=== PATIENT | female | born 1950 | race Caucasian/White ===

== ENCOUNTER 2018-05-10 05:00 | Day surgery (SDC) | payer MEDICARE ==
[2018-05-09 14:38] LABS: HEMATOCRIT 44.2 % (36.0-48.0); HEMOGLOBIN 14.7 g/dL (12-16); MCH 31.2 pg (26.0-34.0); MCHC 33.3 g/dL (31.0-37.0); MCV 93.8 fL (80.0-100.0); MEAN PLATELET VOLUME 12.1 fL (7.4-10.4); RBC 4.71 10x6/uL (4.00-5.40); RDW 13.4 % (11.5-14.5); WBC 6.3 10x3/uL (4.8-10.8)
[~2018-05-10] VITALS: Ht 165.1 cm; Wt 81.6 kg
--- NOTE | ~2018-05-10 | OP ---
PATIENT NAME: CAT SANTIAGO MEDICAL RECORD: [id number] :46 LOCATION:[facility] ADMISSION DATE: SURGEON: AROLDO PAN DPM DATE OF OPERATION: 05/10/2018 PREOPERATIVE DIAGNOSES: Osteoarthritis and spurring, left first metatarsophalangeal joint. POSTOPERATIVE DIAGNOSES: Osteoarthritis and spurring, left first metatarsophalangeal joint with the inclusion of significant chondromalacia as well as cartilaginous defect of the head of the first metatarsal. ANESTHESIA: Local with IV sedation utilizing lidocaine and Marcaine plain, approximately 12 cc total around the first ray of the left foot. HEMOSTASIS: Left ankle tourniquet at 250 mmHg. PREOPERATIVE DETAILS: The patient was taken to the OR, placed on the operating table in a supine position followed by induction of general anesthesia and infiltration of local anesthetic. The left extremity was then prepped and draped in the usual aseptic technique followed by exsanguination and inflation of tourniquet. A 15 blade was used to create a 3.5 to 4 cm linear incision over dorsal aspect of the first MPJ. The incision was deepened down through the subcutaneous tissue to the joint capsule. A linear capsulotomy was performed and the head of the first metatarsal and base of the proximal phalanx were delivered. There was noted to be significant chondromalacia as well as spurring on the dorsal aspect. The dorsal one-third of the cartilaginous surface of the head of the first metatarsal was totally eroded down to subchondral bone. At this time, a sagittal saw was used to remove the extensive spurring from the dorsal aspect of the head of the first metatarsal as well as a rongeur was used to remove the spurring on the dorsal aspect of the base of proximal phalanx. Following resection, there was adequate cartilaginous coverage of the head of the first metatarsal. Therefore, subchondral drilling was not performed or necessary. The wound was flushed. The joint capsule was repaired with 2-0 Vicryl, the subcutaneous tissue with 4-0 Rapide and the skin was closed with 4-0 Rapide in a subcuticular technique followed by Dermabond, Adaptic, 4 x 4 and Conform were used to dress the wound followed by a Coban. Tourniquet was deflated. POSTOPERATIVE DETAILS: The patient tolerated the procedure well and left the OR with vital signs stable and vascular status at preoperative levels. The patient was transported to recovery per anesthesia in stable condition. TRANSINT:[id number] Voice Confirmation ID: [id number] DOCUMENT ID: [id number] AROLDO PAN DPM at 0831 CC: [id number] DICTATION DATE: 05/10/18 0749 [facility] TESTER: 05/10/18 0830 [facility] 05/10/[address] [id number]
[~2018-05-10 05:00] MED LIST: CELEXA10 MG PO
[2018-05-10 05:38] VITALS: BP 144/77; Ht 165.1 cm; Wt 81.6 kg
== END 2018-05-10 09:31 | disposition home or self-care (01) ==
LOC: D.OPS 05:00 → D.PAN 07:00 → D.OPS 09:31
PROVIDERS: Anesthesiology
DX: M19.072 Primary osteoarthritis, left ankle and foot (principal); M94.272 Chondromalacia, left ankle and joints of left foot; M77.52 Other enthesopathy of left foot and ankle